=== PATIENT | male | born 1970 ===

== ENCOUNTER → 2017-08-13 | Outpatient (CLI) | payer OTHER ==
--- NOTE | 2017-08-13 15:49 | RT STRESS TEST REPORT ---
FACILITY: [facility] PATIENT NAME: SALVADOR DOUGHERTY : [id number] MR: [id number]: [id number] EXAM DATE: ORDERING PHYSICIAN: OBIE WILLIAM TECHNOLOGIST: Simón Acquisition Time: 2017-08-13 13:45:32 Total Exercise Time: 00:06:55 Test Indications: hypertension Medications: blood pressure meds Protocol: BRUCE2 Max HR: 155 BPM 90% of Pred: 172 BPM Max BP: 198/078 mmHG Max Work Load: 11.3 METS At baseline, the patient has T flattening inferiorly and in the lateral precordial leads, which makes interpretation difficulty. He had no chest pain during the test, good heart rate recovery and no significant ST depression. He is low risk, but this test is difficult to strictly interpret because of baseline T abnormalities. Confirmed by MARGARET ELLIS ([id number]) on 08/13/2017 3:48:59 PM Referred By: Overread By: MARGARET ELLIS
== END ==
LOC: RESP 01:10
PROVIDERS: ATTEND Family Medicine
DX: I10 Essential (primary) hypertension (principal)
CPT/HCPCS: 93017